=== PATIENT | male | born 1955 ===

== ENCOUNTER 2018-10-22 14:05 | Emergency (ER) ==
[2018-10-22] MEDS ORDERED: ACETAMINOPHEN 325 MG TAB PO ONE (14:45)
[2018-10-22] MEDS ORDERED: CLINDAMYCIN PHOS 600 MG/ 4 ML VIAL IM ONE (14:45)
[2018-10-22] MEDS ORDERED: TETANUS/DIPHTHERIA TOX ADULT 0.5 ML SYR IM ONE (14:45)
--- NOTE | 2018-10-22 19:05 | NUR ---
Pt approached the window at ~1830 and stated he was leaving. Pt was triaged but left without treatment.
== END 2018-10-22 19:07 | disposition left against medical advice (07) ==
LOC: ER 14:05
DX: L03.116 Cellulitis of left lower limb (principal)